=== PATIENT | male | born 2000 | race Caucasian/White ===

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

== ENCOUNTER 2021-08-15 16:48 | Emergency (ER) | payer MEDICAID, OTHER ==
[2021-08-15] MEDS ORDERED: Sodium Chloride 0.9% 1000 ML 1,000 ML ONE (17:15)
[2021-08-15] MEDS ORDERED: MORPHINE SULFATE 4 MG INJ ONE (17:15)
[2021-08-15] MEDS ORDERED: Zofran 4 MG/2 ML VIAL ONE (17:15)
[2021-08-15] MEDS: Sodium Chloride 0.9% 1000 ML 1,000 ML IV STA (17:18)
[2021-08-15] MEDS: MORPHINE SULFATE 4 MG INJ IV ONE (17:18)
[2021-08-15] MEDS: Zofran 4 MG/2 ML VIAL IV ONE (17:18)
[2021-08-15 17:26] LABS: Absolute Neutrophil Ct (ANC) 5.22 (1.4-6.9); Basophil (Absolute #) 0.02 (0-0.4); Eosinophil % 0.3 % (0.00-5.0); Eosinophil (Absolute #) 0.02 (0-0.5); Hematocrit 45.6 % (42-50); Hemoglobin 15.5 gm/dl (12.5-18.0); Lymphocyte (Absolute #) 0.43 (1.0-4.6); Lymphocytes % 6.5 % (24.0-44.0); Mean Cell Volume 86.9 fl (78-100); Mean Corpuscular Hemoglobin 29.5 pg (26-32); Mean Platelet Volume 9.8 fl (7.5-11.0); Monocyte (Absolute #) 0.91 (0.0-1.3); Monocytes % 13.8 % (0.0-12.0); Neutrophil % 79.1 % (36.0-66.0); Platelet Count 222 K/mm3 (150-450); Red Blood Count 5.25 M/mm3 (4.1-5.6); Red Cell Distribution Width 13.6 % (11.5-14.0); White Blood Count 6.6 K/mm3 (4.0-10.5)
[2021-08-15 17:33] LABS: Amourphous Crystal MODERATE /HPF (NEGATIVE); Appearance SLIGHTLY CLOUDY (CLEAR); Bilirubin NEGATIVE (NEGATIVE); Blood NEGATIVE Ery/ul (0-5); Glucose NEGATIVE (NEGATIVE); Ketones SMALL (NEGATIVE); Leukocyte Esterase NEGATIVE (NEGATIVE); Mucus MANY /HPF (NEGATIVE); Nitrite NEGATIVE (NEGATIVE); Protein,Urine Dip 30 (Negative); RBC 0-2 /HPF (0-2); Specific Gravity 1.029 (1.005-1.025); Urobilinogen 2 mg/dL (0-1)
[2021-08-15 17:36] LABS: ALBUMIN 4.8 g/dL (3.5-5.0); ALKALINE PHOSPHATASE 82 U/L (38-126); ANION GAP 14.9 MEQ/L (5-15); BLOOD UREA NITROGEN 21 mg/dL (9-20); CHLORIDE 102 mmol/L (98-107); Calcium 9.7 mg/dL (8.4-10.2); Carbon Dioxide 26 mmol/L (22-30); Creatinine 1 0.87 mg/dL (0.66-1.25); EST GLOMERULAR FILTRATION RATE > 60.0 ML/MIN; Glucose 103 mg/dL (74-106); LIPASE 28 U/L (23-300); Potassium 3.4 mmol/L (3.5-5.1); SGOT/AST 18 U/L (17-59); SGPT/ALT 13 U/L (0-50); SODIUM 140 mmol/L (137-145); Total Protein 7.8 g/dL (6.3-8.2)
[2021-08-15 17:59] VITALS: O2SAT 99
--- NOTE | 2021-08-15 18:29 | ERPHSYRPT ---
- History of Present Illness Time Seen by Provider: 08/15/21 17:00 Historian: patient Exam Limitations: no limitations Patient Subjective Stated Complaint: PT HERE FOR ABD SINCE LAST NIGHT, WORSE TODAY, WITH SOME VOMITING, LOW GRADE FEVER, STATES VOMITING UP BLACK LIQUID Triage Nursing Assessment: PT ALERT, WAKED IN, RESP EASY, FACE MASK IN PLACE, ABD TENDER TO RIGHT LOWER GUAD Physician History: Patient is a 20-year-old male presents to our ED with a 1 day history of periumbilical pain. Patient states pain started yesterday. Pain described as an ache that is localized. No radiation. Patient pain has been associated with vomiting. Patient states the vomiting appears to be black liquid. Positive subjective fevers. No trauma. Patient denies history of the same. No chest pain or shortness of breath. Symptoms are mild to moderate in intensity. No specific worsening factors. Patient otherwise healthy. He voices no other complaints or concerns at this time. Timing/Duration: yesterday Activities at Onset: none Quality: aching Abdominal Pain Onset Location: periumbilical Pain Radiation: no radiation Severity of Pain-Max: moderate Severity of Pain-Current: mild Modifying Factors: Improves With: nothing Associated Symptoms: denies symptoms Previous symptoms: no prior history Allergies/Adverse Reactions: No Known Drug Allergies Allergy (Verified 08/15/21 16:59) Home Medications: No Reportable Medications [No Reported Medications] 08/15/21 [History] Hx Tetanus, Diphtheria Vaccination/Date Given: No Hx Influenza Vaccination/Date Given: No Hx Pneumococcal Vaccination/Date Given: No Immunizations Up to Date: Yes Travel Risk - International Travel Have you traveled outside of the country in past 3 weeks: No - Coronavirus Screening Are you exhibiting any of the following symptoms?: Yes Symptoms: Fever, Vomiting/Diarrhea Close contact with a COVID-19 positive Pt in past 14-21 Days: No - Vaccine Status Have you recieved a Covid-19 vaccination: No - Review of Systems Constitutional: No Symptoms, No Fever, No Chills Eyes: No Symptoms Ears, Nose, & Throat: No Symptoms Respiratory: No Symptoms, No Cough, No Dyspnea Cardiac: No Symptoms, No Chest Pain, No Edema, No Syncope Abdominal/Gastrointestinal: No Symptoms, No Abdominal Pain, No Nausea, No Vomiting, No Diarrhea Genitourinary Symptoms: No Symptoms, No Dysuria Musculoskeletal: No Symptoms, No Back Pain, No Neck Pain Skin: No Symptoms, No Rash Neurological: No Symptoms, No Dizziness, No Focal Weakness, No Sensory Changes Psychological: No Symptoms Endocrine: No Symptoms Hematologic/Lymphatic: No Symptoms Immunological/Allergic: No Symptoms All Other Systems: Reviewed and Negative - Past Medical History Pertinent Past Medical History: Yes Neurological History: Migraines - Past Surgical History Past Surgical History: Yes Other Surgical History: cyst removed from lt wrist - Social History Smoking Status: Never smoker Exposure to second hand smoke: No Drug Use: none Patient Lives Alone: No - Nursing Vital Signs Nursing Vital Signs: Initial Vital Signs Temperature 98.9 F 08/15/21 16:52 Pulse Rate 110 H 08/15/21 16:52 Respiratory Rate 18 08/15/21 16:52 Blood Pressure 148/96 08/15/21 16:52 O2 Sat by Pulse Oximetry 98 08/15/21 16:52 Pain Scale Pain Intensity 3 - Physical Exam General Appearance: no apparent distress, alert Eye Exam: PERRL/EOMI, eyes nml inspection Ears, Nose, Throat Exam: normal ENT inspection, pharynx normal, moist mucous membranes Neck Exam: normal inspection, non-tender, supple, full range of motion Respiratory Exam: normal breath sounds, lungs clear, No respiratory distress Cardiovascular Exam: regular rate/rhythm, normal heart sounds Gastrointestinal/Abdomen Exam: soft, tenderness, other (Periumbilical tenderness to palpation. Overlying soft tissue intact. No signs of trauma.), No mass Back Exam: normal inspection, normal range of motion, No CVA tenderness, No vertebral tenderness Extremity Exam: normal inspection, normal range of motion, pelvis stable Neurologic Exam: alert, oriented x 3, cooperative, normal mood/affect, nml cerebellar function, sensation nml, No motor deficits Skin Exam: normal color, warm, dry SpO2 Interpretation: normal SpO2: 99 O2 Delivery: Room Air - Course Nursing assessment & vital signs reviewed: Yes - CT Exams Abdomen/Pelvis CT Interpretation: Tele-radiologist Report (No comps. Normal appendectomy. Mild diffuse fecal stasis. Otherwise normal abdomen pelvis.) Ordered Tests: Active Orders 24 hr Category Date Time Status IV Insertion STAT Care 08/15/21 17:12 Active ABDOMEN AND PELVIS W CONTRAST [CT] Stat Exams 08/15/21 17:12 Taken CBC W DIFF Stat Lab 08/15/21 17:00 Completed CMP Stat Lab 08/15/21 17:00 Completed LIPASE Stat Lab 08/15/21 17:00 Completed UA W/RFX UR CULTURE Stat Lab 08/15/21 17:14 Completed Medication Summary Discontinued Medications Generic Name Dose Route Start Last Admin Trade Name Kathie PRN Reason Stop Dose Admin Sodium Chloride 1,000 mls @ 999 mls/hr 08/15/21 17:12 08/15/21 17:18 Sodium Chloride 0.9% 1000 Ml IV 08/15/21 18:12 999 mls/hr .Q1H1M STA Administration Sodium Chloride Confirm 08/15/21 17:15 Sodium Chloride 0.9% 1000 Ml Administered 08/15/21 17:16 Dose 1,000 mls @ ud .ROUTE .STK-MED ONE Morphine Sulfate 4 mg 08/15/21 17:12 08/15/21 17:18 Morphine Sulfate 4 Mg/Ml Injection IV 08/15/21 17:13 4 mg STAT ONE Administration Morphine Sulfate Confirm 08/15/21 17:15 Morphine Sulfate 4 Mg/Ml Injection Administered 08/15/21 17:16 Dose 4 mg .ROUTE .STK-MED ONE Ondansetron HCl 4 mg 08/15/21 17:12 08/15/21 17:18 Ondansetron Hcl 4 Mg/2 Ml Vial IV 08/15/21 17:13 4 mg STAT ONE Administration Ondansetron HCl Confirm 08/15/21 17:15 Ondansetron Hcl 4 Mg/2 Ml Vial Administered 08/15/21 17:16 Dose 4 mg .ROUTE .STK-MED ONE Lab/Rad Data: Laboratory Result Diagrams 08/15/21 17:00 08/15/21 17:00 Laboratory Results 08/15/21 08/15/21 08/15/21 Range/Units 17:14 17:00 17:00 WBC 6.6 (4.0-10.5) K/mm3 RBC 5.25 (4.1-5.6) M/mm3 Hgb 15.5 (12.5-18.0) gm/dl Hct 45.6 (42-50) % MCV 86.9 (78-100) fl MCH 29.5 (26-32) pg MCHC 34.0 (32-36) g/dl RDW 13.6 (11.5-14.0) % Plt Count 222 (150-450) K/mm3 MPV 9.8 (7.5-11.0) fl Gran % 79.1 H (36.0-66.0) % Eos # (Auto) 0.02 (0-0.5) Absolute Lymphs (auto) 0.43 L (1.0-4.6) Absolute Monos (auto) 0.91 (0.0-1.3) Lymphocytes % 6.5 L (24.0-44.0) % Monocytes % 13.8 H (0.0-12.0) % Eosinophils % 0.3 (0.00-5.0) % Basophils % 0.3 (0.0-0.4) % Absolute Granulocytes 5.22 (1.4-6.9) Basophils # 0.02 (0-0.4) Sodium 140 (137-145) mmol/L Potassium 3.4 L (3.5-5.1) mmol/L Chloride 102 (98-107) mmol/L Carbon Dioxide 26 (22-30) mmol/L Anion Gap 14.9 (5-15) MEQ/L BUN 21 H (9-20) mg/dL Creatinine 0.87 (0.66-1.25) mg/dL Estimated GFR > 60.0 ML/MIN Glucose 103 (74-106) mg/dL Calcium 9.7 (8.4-10.2) mg/dL Total Bilirubin 1.20 (0.2-1.3) mg/dL AST 18 (17-59) U/L ALT 13 (0-50) U/L Alkaline Phosphatase 82 (38-126) U/L Serum Total Protein 7.8 (6.3-8.2) g/dL Albumin 4.8 (3.5-5.0) g/dL Lipase 28 (23-300) U/L Urine Color YELLOW (YELLOW) Urine Appearance SLIGHTLY CLOUDY (CLEAR) Urine pH 6.0 (5-6) Ur Specific [place] 1.029 (1.005-1.025) Urine Protein 30 (Negative) Urine Ketones SMALL (NEGATIVE) Urine Blood NEGATIVE (0-5) Cristopher/ul Urine Nitrite NEGATIVE (NEGATIVE) Urine Bilirubin NEGATIVE (NEGATIVE) Urine Urobilinogen 2 (0-1) mg/dL Ur Leukocyte Esterase NEGATIVE (NEGATIVE) Urine WBC (Auto) 3-5 (0-5) /HPF Urine RBC (Auto) 0-2 (0-2) /HPF U Epithel Cells (Auto) NONE (FEW) /HPF Urine Bacteria (Auto) NONE (NEGATIVE) /HPF Amorphous Crystals MODERATE (NEGATIVE) /HPF Urine Mucus (Auto) MANY (NEGATIVE) /HPF Urine Culture Reflexed NO (NO) Urine Glucose NEGATIVE (NEGATIVE) mg/dL - Progress Progress: improved Progress Note: Patient reassessed. He feels well. No active pain. CT scan reveals fecal stasis otherwise normal. Normal appendix. No indication for further work-up. Will discharge home. Patient agrees to follow-up with primary care doctor within 48 hours for evaluation. Patient voices no other complaints concerns at this time. UA negative. Mild hypokalemia. Patient received oral potassium replacement. Patient has no testicular pain. Portions of this note were created with voice recognition technology. There may be grammatical, spelling, punctuation or sound alike errors 08/15/21 18:29 Counseled pt/family regarding: lab results, diagnosis, need for follow-up, rad results - Departure Departure Disposition: Home Clinical Impression: Abdominal pain, Fecal stasis, Hypokalemia Condition: Stable Critical Care Time: No Referrals: DOCTOR,NO FAMILY [Primary Care Provider] - Follow up/PCP as directed FRANKLIN REYNOSO MD [ACTIVE STAFF] - Follow up/PCP as directed Additional Instructions: Discharge/Care Plan JUANITO MOSLEY was seen on 08/15/21 in the Emergency Room. The patient was counseled regarding Diagnosis,Lab results, Imaging studies, need for follow up and when to return to the Emergency Room. Prescriptions given: Discharge Note I have spoken with the patient and/or caregivers. I have explained the patient's condition, diagnosis and treatment plan based on the information available to me at this time. I have answered the patient's and/or caregiver's questions and addressed any concerns. The patient and/or caregivers have as good understanding of the patient's diagnosis, condition and treatment plan as can be expected at this point. The vital signs have been stable. The patient's condition is stable and appropriate for discharge from the emergency department. The patient will pursue further outpatient evaluation with the primary care physician or other designated or consulting physician as outlined in the discharge instructions. The patient and/or caregivers are agreeable to this plan of care and follow-up instructions have been explained in detail. The patient and/or caregivers have received these instruction. The patient/and or caregivers are aware that any significant change in condition or worsening of symptoms should prompt an immediate return to this or the closest emergency department or call 911.
[2021-08-15] MEDS ORDERED: Klor Con 10 MEQ PO ONE (18:35)
[2021-08-15] MEDS: Klor Con 10 MEQ PO ONE (18:36)
[2021-08-15 18:41] VITALS: BP 125/97; PULSE 100
--- NOTE | 2021-08-16 08:44 | XRAY ---
Indication: Lower abdominal pain. Nausea and vomiting. Multiple contiguous axial images obtained through the abdomen and pelvis using 80 cc Isovue 370 contrast. Comparison: None Lung bases are clear. Heart not enlarged. Noncontrasted stomach and bowel loops appear nonobstructed. Normal appendix. Mild diffuse scattered colonic fecal debris throughout. No free fluid/air. Remaining liver, gallbladder, pancreas, spleen, adrenal glands, kidneys, ureters, bladder, and aorta are normal in CT appearance and attenuation. No pathologic retroperitoneal lymphadenopathy. Osseous structures intact. No ventral or inguinal hernias. Impression: 1. Mild diffuse fecal stasis. 2. Remaining CT abdomen/pelvis with contrast exam is negative.
== END 2021-08-15 18:41 | disposition home or self-care (01) ==
LOC: ED 16:48
DX: K59.89 Other specified functional intestinal disorders (principal); E87.6 Hypokalemia; R10.33 Periumbilical pain; R11.11 Vomiting without nausea
CPT/HCPCS: 36000; 36415; 74177; 80053; 81001; 83690; 85025; 96360; 96374; 96375; 99284; J2270; J2405; A9270-GY